=== PATIENT | female | born 1935 | race Caucasian/White ===

== ENCOUNTER 2017-03-02 12:24 | Emergency (ER) | payer MEDICARE ==
[2017-03-02 13:33] VITALS: BP 173/63
--- NOTE | 2017-03-02 14:20 | UC ---
Skin Complaint HPI - HPI Summary HPI Summary: Found tick on L posterior axillary area 2 days ago, area is still red and raised. Thinks it may have been on for 2 or more days, tick was large and "white " when she pulled it off. - History of Current Complaint Hx Obtained From: Patient Hx Last Menstrual Period: "years ago." ?: No Skin Exposure Onset/Duration: Days Ago Timing: Constant Onset Severity: Mild Current Severity: Mild Location: Discrete Character: Redness, Raised Aggravating: Nothing Alleviating: Nothing Related History: Insect Bite/Sting <Feli Conte - Last Filed: 03/02/17 14:30> <Eve Holder - Last Filed: 03/03/17 07:04> - History of Current Complaint Chief Complaint: UCGeneralIllness Time Seen by Provider: 03/02/17 14:05 Stated Complaint: TICK BITE - Allergy/Home Medications Allergies/Adverse Reactions: Allergies Allergy/AdvReac Type Severity Reaction Status Date / Time Statins Allergy Intermediate See Comment Verified 03/02/17 13:33 Home Medications: Home Medications NK [No Home Medications Reported] 03/02/17 [History Confirmed 03/02/17] Review of Systems Constitutional: Negative Skin: Other - tick Eyes: Negative ENT: Negative Respiratory: Negative Cardiovascular: Negative Gastrointestinal: Negative Genitourinary: Negative Motor: Negative Neurovascular: Negative Musculoskeletal: Negative Neurological: Negative Psychological: Negative All Other Systems Reviewed And Are Negative: Yes <Feli Conte - Last Filed: 03/02/17 14:30> PMH/Surg Hx/FS Hx/Imm Hx Endocrine History Of: Denies: Diabetes, Thyroid Disease, Hyperthyroidism, Hypothyroidism, Dyslipidemia Cardiovascular History Of: Denies: Cardiac Disorders, Hypertension, Pacemaker/ICD, Myocardial Infarction , Congestive Heart Failure, Atrial Fibrillation, Deep Vein Thrombosis, Bleeding Disorders Respiratory History Of: Denies: COPD, Asthma, Bronchitis, Pneumonia, Pulmonary Embolism GI/ History Of: Denies: Gastroesophageal Reflux, Ulcer, Gastrointestinal Bleed, Gall Bladder Disease, Kidney Stones, Diverticulitis, Renal Disease, Urosepsis Neurological History Of: Denies: TIA, CVA, Dementia, Seizures, Migraine Psychological History Of: Denies: Anxiety, Depression, Bipolar Disorder, Schizophrenia, Post Traumatic Stress Disorder Cancer History Of: Denies: Lung Cancer, Colorectal Cancer, Breast Cancer, Prostate Cancer, Cervical Cancer Other History Of: Negative For: HIV, Hepatitis B, Hepatitis C, Anticoagulant Therapy - Surgical History Surgical History: Yes Surgery Procedure, Year, and Place: HYSTERECTOMY, VERICOSE VEIN, CATARACTS BILAT - Family History Known Family History: Negative: Cardiac Disease, Hypertension, Diabetes - Social History Occupation: Employed Full-time Alcohol Use: Rare Substance Use Type: None Smoking Status (MU): Never Smoked Tobacco <Feli Conte - Last Filed: 03/02/17 14:30> Physical Exam Triage Information Reviewed: Yes Appearance: Well-Appearing, No Pain Distress, Well-Nourished Vital Signs: Initial Vital Signs Temp 97.0 F 03/02/17 13:29 Pulse 82 03/02/17 13:29 Resp 18 03/02/17 13:29 BP 173/63 03/02/17 13:29 Pulse Ox 97 03/02/17 13:29 Vital Signs Reviewed: Yes Eye Exam: Normal Eyes: Positive: Conjunctiva Clear ENT Exam: Normal ENT: Positive: Normal ENT inspection, Hearing grossly normal, Pharynx normal, TMs normal Dental Exam: Normal Neck exam: Normal Neck: Positive: Supple, Nontender, No Lymphadenopathy Respiratory Exam: Normal Respiratory: Positive: Chest non-tender, Lungs clear, Normal breath sounds, No respiratory distress, No accessory muscle use Cardiovascular Exam: Normal Cardiovascular: Positive: RRR, No Murmur Musculoskeletal Exam: Normal Musculoskeletal: Positive: ROM Intact Neurological Exam: Normal Neurological: Positive: Alert Psychological Exam: Normal Skin Exam: Other - tick bite sit benign, slightly raised nickel-sized area L posterior axillary area. No streaking or drainage. <Feli Conte - Last Filed: 03/02/17 14:30> Vital Signs: Initial Vital Signs Temp 97.0 F 03/02/17 13:29 Pulse 82 03/02/17 13:29 Resp 18 03/02/17 13:29 BP 173/63 03/02/17 13:29 Pulse Ox 97 03/02/17 13:29 <Eve Holder - Last Filed: 03/03/17 07:04> Course/Dx - Diagnoses Provider Diagnoses: tick bite. elevated blood pressure due to discomfort <Feli Conte - Last Filed: 03/02/17 14:30> Discharge <Feli Conte - Last Filed: 03/02/17 14:30> <Eve Holder - Last Filed: 03/03/17 07:04> - Discharge Plan Condition: Stable Disposition: HOME Patient Education Materials: Tick Bite (ED) Referrals: Glenda Higgins MD [Primary Care Provider] - Additional Instructions: TICK BITE: You have been bitten by a tick. Once the tick is removed, these "bites" usually cause no problems. Tick fever, tick paralysis, Bandana Spotted fever, and Lyme disease are uncommon -- but you should mention this tick bite to your doctor if you develop unusual symptoms in the next several weeks. If you develop any of the following, please see your physician promptly: (1) Fever, chills, or generalized malaise associated with a headache. (2) A red round area at the site of the bite (or elsewhere) (3) Joint pain, joint swelling or generalized weakness. (4) Redness, swelling, or drainage at the site of the bite. Check yourself, your children and your pets for ticks whenever you've been in an area where ticks live. To remove a tick, grasp it firmly with some tweezers or a string in a slipknot as close to its head as possible and pull it steadily. Ticks do not have a typical "head" attached to their body. There are mouth parts sticking out which they use to feed. If there are mouth parts left behind in the wound there is NO increased risk of Lyme infection; however, the chances of a bacterial skin infection (cellulitis) are higher. If mouth parts remain after tick removal, the best thing to do is apply warm soaks to the area 3-4 times per day to encourage the skin to expel the foreign material. DOXYCYCLINE: Doxycycline (Vibramycin, Doryx) is an antibiotic of the tetracycline family. This type of drug is useful for infections of the respiratory tract and genital tract, and is sometimes used for intestinal infections. Unlike most tetracyclines, doxycycline can be taken with food. It is longer acting, and (usually) less prone to side effects than regular tetracycline. Tetracycline antibiotics can stain immature teeth and SHOULD NOT BE TAKEN BY CHILDREN, NURSING MOTHERS, OR WOMEN. Tetracyclines can make you more prone to sunburn. Abdominal cramping, nausea, and diarrhea are occasional side effects. Women may experience vaginal yeast infections. Call the doctor at once if you develop hives, itching, shortness of breath , or lightheadedness. WHEN A TICK IS NOT ENGORGED AND HAS BEEN ON LESS THAN 24 HOURS - THE RISK FOR LYME IS NEGLIGIBLE. YOU CAN REMOVE THE TICK AND OBSERVE THE AREA ON YOUR OWN. FOLLOW-UP CARE: You should contact your private physician for follow-up care if you develop spreading redness near the site of the bite or on any other areas of the body. If you are unable to get a timely appointment, or if you are worsening, call us or return for re-evaluation. Attestation Statement User Type: Provider - I was available for consult. This patient was seen by the advanced practice provider. The patient was not presented to, seen by, or examined by me.-Amna <Eve Holder - Last Filed: 03/03/17 07:04>
[2017-03-02] MEDS ORDERED: DOXYcycline CAP(*) 100 MG PO ONE (14:23)
== END 2017-03-02 14:40 | disposition home or self-care (01) ==
LOC: UCEAST 12:24
DX: S40.862A Insect bite (nonvenomous) of left upper arm, initial encounter (principal); W57.XXXA Bitten or stung by nonvenomous insect and other nonvenomous arthropods, initial encounter; Y92.9 Unspecified place or not applicable; R03.0 Elevated blood-pressure reading, without diagnosis of hypertension
CPT/HCPCS: 99212; G0463

== ENCOUNTER 2018-05-20 12:04 | Emergency (ER) | payer MEDICARE ==
--- NOTE | 2018-05-20 12:28 | ED ---
Lower Extremity - HPI Summary HPI Summary: 82 year old F presenting to [facility] accompanied by friend Dee complains of right hip pain s/p fall from 8-feet balcony on the morning of 05/17/10. The patient rates the pain 6/10 in severity. Symptoms aggravated by weight bearing. Symptoms alleviated by nothing. Reports right flank pain, right buttock pain, lumbosacral pain, bilateral knee pain. Additionally complains of ecchymosis on bilateral knees and decreased appetite. She denies loss of consciousness, neck pain, bilateral rib pain, chest pain, shortness of breath, vomiting. 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 She went to wash the sliding door window of bedroom [id number] when she got locked out without her phone. She climbed over docTrackr rail, which is made of stainless steel wires, from which she hung and tried to slide down into a chair. Her hands slipped and she landed on her back, slightly hitting her head. Patient went home immediately, called her chiropractor and saw him on 05/18/18. He performed pressure points on her, no pulling or jerking. Patient then called her granddaughter, who is a massage therapist, who gave patient back massage. Patient has appointment with Dr. Higgins, JASON at [place], on 05/21/18, who requests imaging to be done today in ED. Home Medications Medication Instructions Recorded Confirmed Type Aspirin TAB* [Aspirin 325 MG TAB*] 325 mg PO DAILY 05/20/18 05/20/18 History Cholecalciferol TAB* [Vitamin D 1,000 unit PO DAILY 05/20/18 05/20/18 History TAB*] Flaxseed Oil 1,000 mg PO DAILY 05/20/18 05/20/18 History Losartan TAB* [Cozaar TAB*] 25 mg PO QPM 05/20/18 05/20/18 History Magnesium Oxide TAB* [MagOx 400 400 mg PO DAILY 05/20/18 05/20/18 History TAB*] Multivitamins/Minerals TAB* 1 tab PO DAILY 05/20/18 05/20/18 History [Theragran/minerals TAB*] Potassium Gluconate [Potassium] 1 tab PO DAILY 05/20/18 05/20/18 History Sertraline* [Zoloft*] 25 mg PO QPM 05/20/18 05/20/18 History Ubidecarenone [Coq10] 100 mg PO DAILY 05/20/18 05/20/18 History - History of Current Complaint Chief Complaint: EDTraumaMultiple Stated Complaint: FALL/RT HIP & BACK PAIN Time Seen by Provider: 05/20/18 12:20 Hx Obtained From: Patient Hx Last Menstrual Period: "years ago." Mechanism Of Injury: Fall From Height Of: - 8 feet Onset of Pain: Days - 3 Onset/Duration: Days - 3 Severity Initially: Moderate Severity Currently: Moderate Pain Intensity: 6 Pain Scale Used: 0-10 Numeric Timing: Constant Location: Is Discrete @ - right hip, right buttock Character Of Pain: Aching Associated Signs And Symptoms: Positive: Negative - loss of consciousness, neck pain, bilateral rib pain, chest pain, shortness of breath, vomiting, Other - right flank pain, right buttock pain, lumbosacral pain, bilateral knee pain, ecchymosis on bilateral knees and decreased appetite Aggravating Factor(s): Weight Bearing Alleviating Factor(s): Nothing Able to Bear Weight: Yes - Allergies/Home Medications Allergies/Adverse Reactions: Allergies Allergy/AdvReac Type Severity Reaction Status Date / Time Evhvduh-Xwm-Rej Reductase Allergy Muscle Ache Verified 05/20/18 12:11 Inhibitor Home Medications: Home Medications Aspirin TAB* [Aspirin 325 MG TAB*] 325 mg PO DAILY 05/20/18 [History Confirmed 05/20/18] Cholecalciferol TAB* [Vitamin D TAB*] 1,000 unit PO DAILY 05/20/18 [History Confirmed 05/20/18] Flaxseed Oil 1,000 mg PO DAILY 05/20/18 [History Confirmed 05/20/18] Losartan TAB* [Cozaar TAB*] 25 mg PO QPM 05/20/18 [History Confirmed 05/20/18] Magnesium Oxide TAB* [MagOx 400 TAB*] 400 mg PO DAILY 05/20/18 [History Confirmed 05/20/18] Multivitamins/Minerals TAB* [Theragran/minerals TAB*] 1 tab PO DAILY 05/20/18 [ History Confirmed 05/20/18] Potassium Gluconate [Potassium] 1 tab PO DAILY 05/20/18 [History Confirmed 05/20] Sertraline* [Zoloft*] 25 mg PO QPM 05/20/18 [History Confirmed 05/20/18] Ubidecarenone [Coq10] 100 mg PO DAILY 05/20/18 [History Confirmed 05/20/18] PMH/Surg Hx/FS Hx/Imm Hx Previously Healthy: No Endocrine/Hematology History: Denies: Hx Anticoagulant Therapy, Hx Diabetes, Hx Thyroid Disease Cardiovascular History: Reports: Hx Hypertension Denies: Hx Congestive Heart Failure, Hx Deep Vein Thrombosis, Hx Myocardial Infarction, Hx Pacemaker/ICD Respiratory History: Denies: Hx Asthma, Hx Chronic Obstructive Pulmonary Disease (COPD), Hx Lung Cancer, Hx Pneumonia, Hx Pulmonary Embolism GI History: Denies: Hx Gall Bladder Disease, Hx Gastrointestinal Bleed, Hx Ulcer, Hx Urosepsis History: Denies: Hx Kidney Stones, Hx Renal Disease Sensory History: Denies: Hx Hearing Aid Neurological History: Denies: Hx Dementia, Hx Migraine, Hx Seizures, Hx Transient Ischemic Attacks (TIA) Psychiatric History: Reports: Hx Depression Denies: Hx Panic Disorder, Hx Schizophrenia, Hx Bipolar Disorder - Surgical History Surgery Procedure, Year, and Place: HYSTERECTOMY, VARICOSE VEIN, CATARACTS BILAT Infectious Disease History: No Infectious Disease History: Denies: Traveled Outside the [place] in Last 30 Days - Family History Known Family History: Positive: Cardiac Disease - parents from cardiac disease - Social History Lives: Alone Alcohol Use: Rare Hx Substance Use: No Substance Use Type: Reports: None Hx Tobacco Use: No Smoking Status (MU): Never Smoked Tobacco Review of Systems Constitutional: Negative Negative: Chest Pain Negative: Shortness Of Breath Positive: Other - decreased appetite. Negative: Vomiting Positive: flank pain - right Musculoskeletal: Negative - neck pain, bilateral rib pain, Positive: Other - right hip pain, right buttock pain, lumbosacral pain, bilateral knee pain Positive: Bruising - bilateral knees Neurological: Negative - LOC Psychological: Normal All Other Systems Reviewed And Are Negative: Yes Physical Exam - Summary Physical Exam Summary: Appearance: Well-appearing, moderate pain distress, well-nourished Skin: Warm, color reflects adequate perfusion, dry. 6-cm ecchymosis on right greater trochanter that is purple and green. 6-cm ecchymosis on ventral surface of left forearm and small abrasions on her left third fourth,fifth fingers. Ecchymosis bilateral knees. Head: Normal Head/Face inspection, atraumatic Eyes: Conjunctiva clear ENT: Normal inspection Neck: Supple, no nodes, no JVD Respiratory: Lungs clear, normal breath sounds, no respiratory distress Cardio: RRR, No murmur, pulses normal, brisk capillary refill Abdomen: Soft, nontender, no masses, no guarding, no rebound Bowel sounds: Present Musculoskeletal: Strength Intact/ROM intact, no calf tenderness, no edema. No rib tenderness. Right hip tenderness. Lumbar back pain, flexion deformity right 4th finger (chronic, per pt) Psychological: Normal Neuro: A&O x3, CN II-XII intact, motor function 5/5, sensation intact, cerebellar normal Triage Information Reviewed: Yes Vital Signs On Initial Exam: Initial Vitals Temp Pulse Resp BP Pulse Ox 98.3 F 84 16 155/70 93 05/20/18 12:08 05/20/18 12:08 05/20/18 12:08 05/20/18 12:08 05/20/18 12:08 Vital Signs Reviewed: Yes Diagnostics - Vital Signs Vital Signs Temp Pulse Resp BP Pulse Ox 05/20/18 12:08 98.3 F 84 16 155/70 93 - Laboratory Result Diagrams: 05/20/18 12:44 05/20/18 12:44 Lab Statement: Any lab studies that have been ordered have been reviewed, and results considered in the medical decision making process. - Radiology Hip/Pelvis Radiology Interpretation Completed By: Radiologist - NO RADIOGRAPHIC EVIDENCE FOR HIP FRACTURE. X-RAYS MAY BE NEGATIVE WITH NONDISPLACED HIP FRACTURE, IF THERE IS PERSISTENT CLINICAL CONCERN, RECOMMEND CONSIDERATION OF MRI. IN THE SETTING OF CONTRAINDICATION TO MRI OR LIMITATION IN EMERGENT ACCESS TO MRI, CT WOULD BE SUGGESTED, THOUGH NO HIP FRACTURE IS NOTED ON THE CT PERFORMED May AT 2:28 PM. ED physician has reviewed this report. L-Spine Radiology Interpretation Completed By: Radiologist - BURST FRACTURE OF THE L3 VERTEBRAL BODY, UNCHANGED. ED physician has reviewed this report. - CT Brain CT Interpretation Completed By: Radiologist - No definite intracranial mass or hemorrhage is noted. ED physician has reviewed this report. C-Spine CT Interpretation Completed By: Radiologist - Degenerative disc disease is noted at multiple levels. There is no fracture of the cervical spine noted. ED physician has reviewed this report. Chest/Abd/Pel CT Interpretation Completed By: Radiologist - Mild less than 25% compression superior endplate L3. There is a 3 mm retropulsion. There is a fracture of the right L4 transverse process. Low density lesions in liver are too small to accurately characterize though there is a background of hepatic steatosis. No hip fracture is noted. No pulmonary lesions are identified. ED physician has reviewed this report. L-Spine CT Interpretation Completed By: Radiologist - 1. BURST FRACTURE OF THE SUPERIOR PORTION OF THE L3 VERTEBRAL BODY WITH MILD RETROPULSION OF FRACTURE FRAGMENTS CAUSING MILD SPINAL CANAL NARROWING. 2. ACUTE NONDISPLACED TRANSVERSE PROCESS FRACTURE ON THE RIGHT SIDE OF THE L1 VERTEBRA. 3. 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 4. MILD TO MODERATE LUMBAR SPONDYLITIC CHANGES. ED physician has reviewed this report. - EKG 1323 Cardiac Rate: NL - 76 BPM EKG Rhythm: Sinus Rhythm ST Segment: Non-Specific Ectopy: None EKG Interpretation: nml AV/IV CT, nml QTc, and nml axis Re-Evaluation - Re-Evaluation First Eval Re-Evaluation Time: 15:22 Change: Unchanged Comment: Patient given reports of her imaging. Second Eval Re-Evaluation Time: 18:01 Comment: Patient was given copies of her imaging and labs. [facility] TLSO [facility]. Patient has no weakness and feels fine, wants to go home. Lower Extremity Course/Dx - Course Course Of Treatment: 82 yo F fell approximately 8 feet on 05/17/18, landing on her back, had chiropracter treatment the next day and massage, presents today for eval of continued right hip and flank and lower back pain. Medications reviewed this visit. Allergies noted. Bloodwork/UA obtained showing no significant abnormalities. Imaging shows L3 compression fracture with 3mm retropulsion. Pt has no neuro deficit or incontinence. Dr. Hutson, neurosurgery, requests dedicated CT scan of lumbar spine and upstanding lumbar spine xray at 1455. Spoke with Sandhya from [facility] [place] at [phone] at 1615, who said that someone will come to ED to fit patient for lumbar TLSO brace , as per Dr. Hutson. Fax script and face sheet are being sent to [facility] [place] at [phone]. Spoke with Dr. Thorpe again at [phone], who is aware of final readings of additional xray and still agrees with oringial treatment plan. Patient fitted for back brace by [facility]. She will be discharged with follow up from Dr. Higgisn tomorrow 05/21/[address] Thorpe this week. - Diagnoses Provider Diagnoses: Compression fracture of L3 lumbar vertebra, Fracture of L1 vertebra, Fall from height of greater than 3 feet - Physician Notifications Discussed Care Of Patient With: Aisha Hutson Time Discussed With Above Provider: 14:55 Instructed by Provider To: Other - Dr. Hutson, neurosurgery, requests dedicated CT scan of lumbar spine and upstanding lumbar spine xray. Discharge - Sign-Out/Discharge Documenting (check all that apply): Patient Departure - Discharge - Discharge Plan Condition: Stable Disposition: HOME Patient Education Materials: Vertebral Compression Fracture (ED) Referrals: Glenda Higgins MD [Primary Care Provider] - 3 Days Aisha Hutson MD [Medical Doctor] - 7 Days Additional Instructions: We gave you copies of your CT's and xrays and labs. We discussed your care with Dr. Best the neurosurgeon information systems supervisor. He recommended the back brace. We gave you ketorolac (toradol) 15mg IV for pain. Keep your appointment with Dr. Higgins tomorrow. Do not have chiropractic treatment or massage until you are cleared by Dr. Best. Dr. Best also would like Dr. Higgins to evaluate you for osteoporosis. Return to the ER if you have new or worsening symptoms. - Billing Disposition and Condition Condition: STABLE Disposition: Home
[2018-05-20] MEDS ORDERED: NS 0.9% 1000 ML* 1,000 ML IV ONE (13:00)
[2018-05-20 13:39] LABS: ABS Basophils 0 10^3/ul (0-0.2); ABS Eosinophils 0.1 10^3/ul (0-0.6); ABS Lymphocytes 0.9 10^3/ul (1.0-4.8); ABS Monocytes 0.8 10^3/ul (0-0.8); ABS Neutrophils 6.5 10^3/ul (1.5-7.7); ABS Nucleated RBC 0 10^3/ul; Eosinophil % 1.5 % (0-6); Hematocrit 41 % (35-47); Hemoglobin 14.3 g/dl (12.0-16.0); Lymphocyte % 11.2 % (25-47); Mean Corpuscular HGB Conc 35 g/dl (31-36); Mean Corpuscular Hemoglobin 30 pg (27-31); Mean Corpuscular Volume 86 fL (80-97); Mean Platelet Volume 8.7 um3 (7.4-10.4); Nucleated Red Blood Cells % 0.1; Platelet Count 166 10^3/ul (150-450); Red Blood Count 4.84 10^6/ul (4.00-5.40); Red Cell Distribution Width 13 % (10.5-15); White Blood Count 8.4 10^3/ul (3.5-10.8)
[2018-05-20 13:56] LABS: EGFR Non-African American 96.2 (>60)
[2018-05-20 14:03] LABS: INR 0.98 (0.77-1.02)
[2018-05-20] MEDS ORDERED: Iohexol 300* (CONTRAST) 10 ML SDV IV ONE (14:04)
[2018-05-20 14:06] LABS: Urine Appearance Clear; Urine Blood Negative (Negative); Urine Color Yellow; Urine Ketones Negative (Negative); Urine Protein Negative (Negative); Urine Red Blood Cell Absent (Absent); Urine Urobilinogen Negative (Negative); Urine White Blood Cell 1+(6-10/hpf) (Absent)
--- NOTE | 2018-05-20 14:30 | RAD ---
Indication: Fall, head injury. CT of the brain was performed without IV contrast. Ventricular structures are midline. No midline shift is noted. The extra-axial spaces are unremarkable. There is no evidence of intracranial mass or hemorrhage. No other high or low density lesions are identified. Mastoid air cells and paranasal sinuses are unremarkable. IMPRESSION: No definite intracranial mass or hemorrhage is noted.
--- NOTE | 2018-05-20 14:34 | RAD ---
Indication: Fall, neck injury. CT of the cervical spine was obtained in the axial plane. Sagittal and coronal reconstructed images were obtained. The skull base demonstrates no evidence of fracture. Mastoid air cells are well aerated. C1 ring is intact with no evidence of fracture. The C2 vertebra are intact with no fracture. At C2-C3 there is no disc protrusion. No central or foraminal stenosis is noted. At C3-C4 spondylitic ridge with left uncovertebral joint hypertrophy narrows the left foramen. Left facet arthropathy is noted. No fracture is noted. At C4-C5 minimal degenerative disc disease is noted. Minimal spondylitic ridge is noted. No central or foraminal stenosis is noted. At C5-C6 spondylitic ridge flattens the thecal sac. Bilateral uncovertebral joint hypertrophy narrows both foramen. No central or foraminal stenosis is noted. At C6-C7 spondylitic ridge flattens the thecal sac. No fractures identified. Degenerative disc disease at C7-T1 is noted. IMPRESSION: Degenerative disc disease is noted at multiple levels. There is no fracture of the cervical spine noted.
--- NOTE | 2018-05-20 14:52 | RAD ---
Indication: Fall, hip pain. Back injury. Contrast:. Administered 105.1 ml of OMNIPAQUE 300 mg/ml CT of the abdomen and pelvis was performed after oral and IV contrast administration. Coronal and sagittal reconstructed images were obtained. Inferior thyroid lobes are unremarkable. There is no mediastinal or hilar adenopathy noted. The heart demonstrates no pericardial effusion. The trachea and major bronchi appear patent. The lung short demonstrate no focal nodules in both some minimal scarring is noted in the dependent portions of both lung bases. The thoracic spine demonstrates no fracture. Bridging syndesmophytes are noted. Hemangioma is noted at approximately T8. CT of the abdomen and pelvis demonstrates liver to be diffusely decreased in density. Small low density lesion in the periphery of the left lobe of liver measuring approximately 5 mm is noted which is too small to accurately characterize. This may represent a small cyst or hemangioma. Additional low density lesion in the dome of the right lobe of liver measuring approximately 8 mm is also too small to accurately characterize. Old granulomatous disease is noted. The spleen is normal in size. No adrenal masses are noted. The kidneys demonstrate symmetric nephrograms without hydronephrosis. No retroperitoneal lymphadenopathy is noted. CT of the pelvis demonstrates no retroperitoneal or pelvic lymphadenopathy. The urinary bladder is unremarkable. There is suggestion of a right adnexal cyst measuring up to 3.2 x 2.3 cm. Diverticulosis without definite evidence of diverticulitis. Patient status post hysterectomy. No free fluid is identified. No hernias are identified. Urinary bladder is unremarkable. The bony structures demonstrates no fracture of the pelvis identified. The hips demonstrate no fracture. Sacroiliac joints are unremarkable. Pelvic ring is intact. The lumbar spine demonstrates mild compression of the L3 vertebra superior endplate. Mild 3 mm retropulsion of the superior endplate noted. There is fracture of the right L4 transverse process. IMPRESSION: Mild less than 25% compression superior endplate L3. There is a 3 mm retropulsion. There is a fracture of the right L4 transverse process. Low density lesions in liver are too small to accurately characterize though there is a background of hepatic steatosis. No hip fracture is noted. No pulmonary lesions are identified.
--- NOTE | 2018-05-20 15:11 | RAD ---
HISTORY: fell 8 ft, 3 d ago COMPARISONS: Pelvis dated March 20, 2004, CT dated May 20, 2018 VIEWS: 3, Frontal view of the pelvis with frontal and frog-leg views of the right hip FINDINGS: BONE DENSITY: There is diffuse osteopenia. BONES: There is no displaced fracture. 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 ALIGNMENT: There is no dislocation. SOFT TISSUES: Unremarkable. OTHER FINDINGS: Degenerative changes are noted of the lower lumbar spine. Contrast is noted within the bladder IMPRESSION: NO RADIOGRAPHIC EVIDENCE FOR HIP FRACTURE. X-RAYS MAY BE NEGATIVE WITH NONDISPLACED HIP FRACTURE, IF THERE IS PERSISTENT CLINICAL CONCERN, RECOMMEND CONSIDERATION OF MRI. IN THE SETTING OF CONTRAINDICATION TO MRI OR LIMITATION IN EMERGENT ACCESS TO MRI, CT WOULD BE SUGGESTED, THOUGH NO HIP FRACTURE IS NOTED ON THE CT PERFORMED MAY 20, 2018 AT 2:28 PM.
--- NOTE | 2018-05-20 16:30 | RAD ---
INDICATION: Traumatic fractures L3 and L4 vertebra. COMPARISON: Comparison is made with a prior CT of the abdomen and pelvis of the same date. TECHNIQUE: Contiguous axial sections were obtained beginning above the T12 vertebra and continuing through the L5-S1 disc space. Images were reconstructed in the sagittal and coronal planes. FINDINGS: There is a burst fracture involving the superior portion of the L3 vertebral body with loss of height of approximately 20%. There is mild retropulsion of fracture fragments into the anterior spinal canal of approximately 3.5 mm causing mild spinal canal narrowing. The posterior elements appear intact. There is an acute nondisplaced right transverse process fracture of the L1 vertebral body. 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 At the L1-L2 level there is a mild broad-based disc bulge and mild hypertrophic changes within the facet joints. No spinal canal narrowing is present. There is mild bilateral neural foraminal narrowing. At the L2-L3 level there is a mild broad-based disc bulge and mild hypertrophic changes within the facet joints. There is mild spinal canal narrowing and mild bilateral neural foraminal narrowing. At the L3-L4 level there is a mild broad-based disc bulge and mild hypertrophic changes within the facet joints. There is mild to moderate spinal canal narrowing and mild bilateral neural foraminal narrowing. At the L4-L5 level there is a moderate broad-based disc bulge and moderate hypertrophic changes within the facet joints. There is moderate spinal canal narrowing and moderate bilateral neural foraminal narrowing. At the L5-S1 level there is mild grade 1 anterior spondylolisthesis. There is a mild broad-based disc bulge and moderate hypertrophic changes within the facet joints. No significant spinal canal narrowing is present. There is moderate bilateral neural foraminal narrowing. IMPRESSION: 1. BURST FRACTURE OF THE SUPERIOR PORTION OF THE L3 VERTEBRAL BODY WITH MILD RETROPULSION OF FRACTURE FRAGMENTS CAUSING MILD SPINAL CANAL NARROWING. 2. ACUTE NONDISPLACED TRANSVERSE PROCESS FRACTURE ON THE RIGHT SIDE OF THE L1 VERTEBRA. 3. 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 4. MILD TO MODERATE LUMBAR SPONDYLITIC CHANGES.
[2018-05-20] MEDS ORDERED: Ketorolac INJ* 30 MG/ML 1 ML VIAL IV PUSH ONE (17:18)
--- NOTE | 2018-05-20 17:29 | RAD ---
INDICATION: Trauma L3 fracture. COMPARISON: Comparison is made with a prior CT of the lumbar spine from May 20, 2018. TECHNIQUE: AP and lateral films of the lumbar spine were obtained. FINDINGS: There is a mild lumbar scoliosis convex toward the left side. There is a mild fracture involving the superior endplate of the L3 vertebral body which appears to represent a burst fracture on the prior CT study which appears unchanged. No other fractures are visualized on this x-ray exam. There is mild to moderate diffuse degenerative disc disease. IMPRESSION: BURST FRACTURE OF THE L3 VERTEBRAL BODY, UNCHANGED.
[2018-05-20 18:48] VITALS: BP 158/82
== END 2018-05-20 18:35 | disposition home or self-care (01) ==
LOC: ED 12:04
DX: S32.038A Other fracture of third lumbar vertebra, initial encounter for closed fracture (principal); S32.019A Unspecified fracture of first lumbar vertebra, initial encounter for closed fracture; W13.0XXA Fall from, out of or through balcony, initial encounter; Y92.092 Bedroom in other non-institutional residence as the place of occurrence of the external cause; K76.0 Fatty (change of) liver, not elsewhere classified; Z88.8 Allergy status to other drugs, medicaments and biological substances; Z79.82 Long term (current) use of aspirin
CPT/HCPCS: 36415; 70450; 71260; 72100; 72125; 72131; 74177; 80053; 81003; 81015; 82150; 82550; 83605; 83690; 84484; 85025; 85610; 87086; 93005; 96361; 96374; 99283; J1885; Q9967

== ENCOUNTER 2019-10-15 10:13 | Emergency (ER) | payer MEDICARE ==
[2019-10-15 10:26] VITALS: BP 169/81
--- NOTE | 2019-10-15 10:55 | UC ---
Throat Pain/Nasal Jacek HPI - HPI Summary HPI Summary: 84-year-old female presents with 6-7 day history of general malaise, fatigue, nasal congestion, sinus pressure, bilateral ear pressure, sore throat, and occasional nonproductive cough. States she has been taking ibuprofen and diphenhydramine with some relief in her symptoms. She has also been using a saline rinse with some relief. Denies fever, chills, dysphagia, chest pain, shortness of breath, abdominal pain, nausea, vomiting, or diarrhea. - History of Current Complaint Chief Complaint: UCGeneralIllness Stated Complaint: SORE THROAT EAR PAIN MOUTH PAIN Time Seen by Provider: 10/15/19 10:33 Hx Obtained From: Patient Hx Last Menstrual Period: "years ago." Pain Intensity: 8 - Allergies/Home Medications Allergies/Adverse Reactions: Allergies Allergy/AdvReac Type Severity Reaction Status Date / Time [id number]-[id number]-Jot Reductase Allergy Muscle Ache Verified 10/15/19 10:26 Inhibitor PMH/Surg Hx/FS Hx/Imm Hx Endocrine History: Dyslipidemia Cardiovascular History: Hypertension Other History Of: Negative For: HIV, Hepatitis B, Hepatitis C, Anticoagulant Therapy - Surgical History Surgical History: Yes Surgery Procedure, Year, and Place: HYSTERECTOMY, VARICOSE VEIN, CATARACTS BILAT - Family History Known Family History: Positive: Cardiac Disease - parents from cardiac disease Negative: Hypertension, Diabetes - Social History Occupation: Retired Lives: Alone Alcohol Use: Rare Substance Use Type: None Smoking Status (MU): Never Smoked Tobacco Review of Systems All Other Systems Reviewed And Are Negative: Yes Constitutional: Positive: Fatigue. Negative: Fever, Chills Skin: Negative: Rash Eyes: Negative: Drainage, Eye Redness ENT: Positive: Sore Throat, Ear Ache, Nasal Discharge, Sinus Congestion, Sinus Pain/Tenderness Respiratory: Positive: Cough. Negative: Shortness Of Breath Cardiovascular: Negative: Palpitations, Chest Pain Gastrointestinal: Negative: Abdominal Pain, Vomiting, Diarrhea, Nausea Genitourinary: Positive: Negative Musculoskeletal: Positive: Negative Neurological: Positive: Negative Is Patient Immunocompromised?: No Physical Exam - Summary Physical Exam Summary: GENERAL APPEARANCE: Well developed, well nourished, alert and cooperative, and appears to be in no acute distress. EYES: Conjunctiva clear. No drainage. EARS: External auditory canals and tympanic membranes clear, hearing grossly intact. NOSE: Mild-moderate nasal congestion. No nasal discharge. THROAT: Pharynx normal No tonsilar inflammation, swelling, exudate, or lesions. Uvula midline. NECK: Neck supple, non-tender without lymphadenopathy. CARDIAC: Normal S1 and S2. No S3, S4 or murmurs. Rhythm is regular. There is no peripheral edema, cyanosis or pallor. Extremities are warm and well perfused. Capillary refill is less than 2 seconds. Peripheral pulses intact. LUNGS: Clear to auscultation without rales, rhonchi, wheezing or diminished breath sounds. Cough not observed. ABDOMEN: Positive bowel sounds. Soft, nondistended, nontender. No guarding or rebound. No masses or hepatosplenomegally. MUSKULOSKELETAL: ROM intact to all extremities. No joint erythema or tenderness. Normal muscular development. Normal gait. SKIN: Skin normal color, texture and turgor with no lesions or eruptions. Triage Information Reviewed: Yes Vital Signs: Initial Vital Signs Temp 98.7 F 10/15/19 10:23 Pulse 80 10/15/19 10:23 Resp 17 10/15/19 10:23 BP 169/81 10/15/19 10:23 Pulse Ox 100 10/15/19 10:23 Vital Signs Reviewed: Yes Throat Pain/Nasal Course/Dx - Course Course Of Treatment: 84-year-old female presents with 6-7 day history of general malaise, fatigue, nasal congestion, sinus pressure, bilateral ear pressure, sore throat, and occasional nonproductive cough. States she has been taking ibuprofen and diphenhydramine with some relief in her symptoms. She has also been using a saline rinse with some relief. Denies fever, chills, dysphagia, chest pain, shortness of breath, abdominal pain, nausea, vomiting, or diarrhea. Afebrile. Hypertensive otherwise vital signs stable. Patient had mild to moderate nasal congestion, pharyngeal erythema, no tonsillar swelling or exudate, no cervical lymphadenopathy, clear bilateral breath sounds, and otherwise unremarkable exam. Rapid strep test was negative. Reviewed the results with the patient and discussed that her symptoms were likely from a viral upper respiratory infection and I'm recommending symptomatic treatment at this time. She is to follow-up here or with her primary care provider in 3 days if symptoms are not improving. Anticipatory guidance and warning symptoms were reviewed with the patient. Verbalizes understanding and agrees with plan of care. - Differential Dx/Diagnosis Differential Diagnosis/HQI/PQRI: Influenza, Peritonsillar Abscess, Pharyngitis, Sinusitis, Tonsillitis, URI Provider Diagnosis: Viral URI Discharge ED - Sign-Out/Discharge Documenting (check all that apply): Patient Departure All imaging exams completed and their final reports reviewed: No Studies - Discharge Plan Condition: Stable Disposition: HOME Prescriptions: Fluticasone NASAL SPRAY 50MCG* [Flonase NASAL SPRAY 50MCG*] 2 spray BOTH NARES DAILY #1 btl Patient Education Materials: Upper Respiratory Infection (ED) Referrals: Glenda Higgins MD [Primary Care Provider] - 3 Days Additional Instructions: Your history and exam are consistent with a viral upper respiratory infection. Viral infections do not respond to antibiotics and are limited to the treatment of symptoms. Viral infections typically run their course in 7-10 days. Get plenty of rest. Drink plenty of fluids to avoid dehydration especially if you are running any fever. Use a saline rinse kit such as Neti Pot or NeilMed at least twice a day to help thin secretions and promote drainage of the sinuses. Use fluticasone (Flonase) nasal spray 2 sprays each nostril once daily. Take over the counter acetaminophen (Tylenol) or ibuprofen (Advil, Motrin) according to directions as needed for pain or fever. Use salt water gargles several times a day if you have a sore throat. You may also use Chloraseptic spray or Cepacol lonzenges according to directions which contain a numbing medication and can provide some temporary relief from your sore throat. Follow up with your primary care provider in 3 days if symptoms persist. Seek immediate medical attention in the emergency room if you have fever greater than 100.5 F despite taking acetaminophen or ibuprofen, have chest pain , difficulty breathing, are unable to swallow, or have any worsening of symptoms. - Billing Disposition and Condition Condition: STABLE Disposition: Home
== END 2019-10-15 11:15 | disposition home or self-care (01) ==
LOC: UCEAST 10:13
DX: J06.9 Acute upper respiratory infection, unspecified (principal); R53.81 Other malaise; I10 Essential (primary) hypertension; H92.09 Otalgia, unspecified ear; Z88.6 Allergy status to analgesic agent
CPT/HCPCS: 87651; 99212; G0463